=== PATIENT | male | born 1980 | race Caucasian/White ===

== ENCOUNTER 2017-08-04 10:41 | Day surgery (SDC) | payer OTHER ==
[2017-08-04] MEDS ORDERED: MIDAZOLAM 1 MG/ML 2 ML INJ (13:05)
[2017-08-04] MEDS ORDERED: LIDOCAINE 2% (SDV) 5 ML INJ (13:05)
[2017-08-04] MEDS ORDERED: PROPOFOL 40 ML (13:05)
== END 2017-08-04 15:11 | disposition home or self-care (01) ==
LOC: GIL 10:41
DX: K29.30 Chronic superficial gastritis without bleeding (principal); E03.9 Hypothyroidism, unspecified; E11.9 Type 2 diabetes mellitus without complications; I10 Essential (primary) hypertension; E66.9 Obesity, unspecified; Z68.38 Body mass index [BMI] 38.0-38.9, adult
CPT/HCPCS: 43239; 82962; 88305; 88312

== ENCOUNTER 2018-03-01 05:51 | Day surgery (SDC) | payer OTHER ==
[2018-03-01] MEDS ORDERED: LIDOCAINE 100 MG SYRINGE (07:51)
[2018-03-01] MEDS ORDERED: PROPOFOL 40 ML (07:51)
== END 2018-03-01 09:04 | disposition home or self-care (01) ==
LOC: GIL 05:51
DX: K64.8 Other hemorrhoids (principal); R19.4 Change in bowel habit; I10 Essential (primary) hypertension; E11.9 Type 2 diabetes mellitus without complications; K59.00 Constipation, unspecified
CPT/HCPCS: 45378; 82962